=== PATIENT | female | born 1960 ===

== ENCOUNTER 2021-12-01 12:00 | Inpatient (IN) | payer OTHER ==
[~2021-12-01] VITALS: Ht 190.5 cm; Wt 104.3 kg
[2021-12-01] MEDS ORDERED: MAGNESIUM400 MG (13:56)
[2021-12-01] MEDS ORDERED: MELATONIN5 M1 (13:56)
[2021-12-07] MEDS ORDERED: PERCOCET 5-3251 EACH PO (08:04)
== END 2021-12-07 12:11 | disposition home or self-care (01) | DRG 337 ==
LOC: O/R 12-06 05:00 → SURG 12-06 05:00
PROVIDERS: ADMIT Surgery; ATTEND Surgery
PROC: 0DNW4ZZ Release Peritoneum, Percutaneous Endoscopic Approach (ICD-10-PCS; 2021-12-06)
PROC: 0WUF4JZ Supplement Abdominal Wall with Synthetic Substitute, Percutaneous Endoscopic Approach (ICD-10-PCS; 2021-12-06)
PROC: 0DNU4ZZ Release Omentum, Percutaneous Endoscopic Approach (ICD-10-PCS; principal; 2021-12-06 13:45)
DX: K43.9 Ventral hernia without obstruction or gangrene (principal); K66.0 Peritoneal adhesions (postprocedural) (postinfection); Z20.822 Contact with and (suspected) exposure to COVID-19

== ENCOUNTER 2023-03-06 08:24 | Outpatient (CLI) | payer OTHER ==
[~2023-03-06 08:24] MED LIST: MAGNESIUM400 MG; MELATONIN5 M1; PERCOCET 5-3251 EACH PO
== END 2023-03-06 08:26 | disposition home or self-care (01) ==
LOC: TOM 08:24
PROVIDERS: ATTEND Surgery
DX: K56.609 Unspecified intestinal obstruction, unspecified as to partial versus complete obstruction (principal); K57.30 Diverticulosis of large intestine without perforation or abscess without bleeding

== ENCOUNTER 2024-01-31 12:00 | Inpatient (IN) | payer OTHER ==
[~2024-01-31] VITALS: Ht 91.4 cm; Wt 101.2 kg
[2024-01-31 13:46] VITALS: BP 145/77
[2024-01-31] MEDS ORDERED: AVAPRO75 MG PO (13:47)
[2024-01-31] MEDS ORDERED: DETROL1 MG PO (13:48)
[2024-01-31] MEDS ORDERED: SIMVASTATIN (13:49)
[2024-01-31] MEDS ORDERED: NEURONTIN300 MG PO (13:49)
[2024-01-31] MEDS ORDERED: NEURONTIN300 MG (13:49)
[2024-01-31] MEDS ORDERED: ZANAFLEX4 MG PO (13:50)
[2024-02-05] MEDS ORDERED: ONDANSETRON HCL 2 MG/ML VIAL IV PRN (20:00)
[2024-02-05] MEDS ORDERED: ACETAMINOPHEN 500 MG GEL..CAP PO SCH (20:00)
[2024-02-05] MEDS ORDERED: RINGERS SOLUTION,LACTATED 1,000 ML IV SCH (20:00)
[2024-02-05] MEDS ORDERED: MORPHINE SULFATE 4 MG/ML CARTRIDGE IV PRN (20:00)
[2024-02-05] MEDS ORDERED: OxyCODONE HCL 5 MG TABLET (ROXICODONE) PO PRN (20:00)
[2024-02-05] MEDS ORDERED: LIDOCAINE HCL 1%/EPINEPHRINE 20ML VIAL IJ SCH (20:30)
[2024-02-05] MEDS ORDERED: BUPIVACAINE HCL 30 ML VIAL IJ SCH (20:30)
[2024-02-05] MEDS ORDERED: METRONIDAZOLE/SODIUM CHLORIDE 500 MG/100 ML PIGGYBACK IV SCH (20:30)
[2024-02-05] MEDS ORDERED: levoFLOXacin IN DEXTROSE 5 % 5 MG/ML PIGGYBAG IV SCH (20:30)
[2024-02-05] MEDS ORDERED: SIMETHICONE 125 MG CAPSULE PO SCH (21:00)
[2024-02-05] MEDS ORDERED: FAMOTIDINE/PF 20 MG/2 ML VIAL IV PUSH SCH (21:00)
[2024-02-05] MEDS ORDERED: SUGAMMADEX SODIUM 200 MG/2 ML VIAL IV SCH (22:00)
[2024-02-05] MEDS ORDERED: MORPHINE SULFATE 4 MG/ML VIAL IV ONE ×2 (22:25→23:30)
[2024-02-05] MEDS ORDERED: ONDANSETRON HCL 2 MG/ML VIAL IV ONE (22:25)
[2024-02-05 23:59] LABS: HEMATOCRIT 37.6 % (36.0-45.00); HEMOGLOBIN 12.6 g/dL (12.0-15.00); MEAN CELL VOLUME 89.2 fL (80.00-100.00); MEAN CORPUSCULAR HEMOGLOBIN 29.9 pg (27.00-32.0); MEAN CORPUSCULAR HGB CONC 33.5 g/dl (32.0-36.0); PLATELET COUNT 216 K/uL (150-450); RED BLOOD COUNT 4.22 M/uL (4.00-6.00); RED CELL DISTRIBUTION WIDTH 14.5 % (11.5-14.5)
[2024-02-06] MEDS ORDERED: GABAPENTIN 300 MG CAPSULE PO SCH (01:00)
[2024-02-06] MEDS ORDERED: METOCLOPRAMIDE HCL 5 MG/ML VIAL IV SCH (01:00)
[2024-02-06 03:40] VITALS: BP 154/84; O2SAT 95
[2024-02-06 08:00] VITALS: BP 150/78; O2SAT 95
[2024-02-06] MEDS ORDERED: LACTULOSE 20 G/30 ML BLIST.PACK PO SCH (09:00)
[2024-02-06] MEDS ORDERED: HYOSCYAMINE SULFATE 0.125 MG TAB.SUBL SL SCH (09:00)
[2024-02-06] MEDS ORDERED: LACTOBACILLUS ACIDOPHILUS 1 CAP CAP PO SCH (09:00)
[2024-02-06] MEDS ORDERED: IRBESARTAN 75 MG TABLET PO SCH (09:00)
[2024-02-06 11:55] LABS: HEMATOCRIT 43.2 % (36.0-45.00); HEMOGLOBIN 14.5 g/dL (12.0-15.00); MEAN CELL VOLUME 89.6 fL (80.00-100.00); MEAN CORPUSCULAR HGB CONC 33.5 g/dl (32.0-36.0); PLATELET COUNT 209 K/uL (150-450); RED BLOOD COUNT 4.81 M/uL (4.00-6.00); RED CELL DISTRIBUTION WIDTH 14.4 % (11.5-14.5)
[2024-02-06 16:00] VITALS: BP 130/66; O2SAT 98
[2024-02-06] MEDS ORDERED: ENOXAPARIN SODIUM 40 MG/0.4 ML SYRINGE SUBCUTANEO SCH (17:00)
[2024-02-06] MEDS ORDERED: POLYETHYLENE GLYCOL 3350 17 GM BLIST.PACK PO SCH (17:00)
[2024-02-07 00:43] VITALS: BP 119/63; O2SAT 98
[2024-02-07 07:14] LABS: CALCIUM 8.7 mg/dL (8.5-10.1); CREATININE SERUM 0.6 mg/dL (0.55-1.02); GFR 100.33; POTASSIUM 4.03 mEq/L (3.5-5.1)
[2024-02-07 08:00] VITALS: BP 109/62; O2SAT 95
[2024-02-07] MEDS ORDERED: ENOXAPARIN SODIUM 40 MG/0.4 ML SYRINGE SUBCUTANEO SCH (09:00)
[2024-02-07 16:02] VITALS: BP 118/76; O2SAT 99
[2024-02-08] VITALS: BP 106/69; O2SAT 97
[2024-02-08] MEDS ORDERED: PANTOPRAZOLE SODIUM 40 MG TABLET.DR PO ONE (01:15)
[2024-02-08] MEDS ORDERED: SUCRALFATE 1 G TABLET PO ONE (01:15)
[2024-02-08] MEDS ORDERED: NEURONTIN300 MG PO (08:18)
[2024-02-08] MEDS ORDERED: INTESTINEX680 M1 PO (08:18)
[2024-02-08] MEDS ORDERED: CELECOXIB200 MG PO (08:19)
[2024-02-08] MEDS ORDERED: CYCLOBENZAPRINE10 MG PO (08:20)
[2024-02-08 09:07] VITALS: BP 124/73; O2SAT 96
== END 2024-02-08 11:54 | disposition home or self-care (01) | DRG 331 ==
LOC: SURH 02-05 07:00 → O/R 02-05 16:24 → SURG 02-05 22:22
PROVIDERS: Internal Medicine; ADMIT Surgery; ATTEND Surgery
PROC: 0DBU4ZZ Excision of Omentum, Percutaneous Endoscopic Approach (ICD-10-PCS; 2024-02-05)
PROC: 0DTP4ZZ Resection of Rectum, Percutaneous Endoscopic Approach (ICD-10-PCS; 2024-02-05)
PROC: 0DNW4ZZ Release Peritoneum, Percutaneous Endoscopic Approach (ICD-10-PCS; 2024-02-05)
PROC: 0DJD8ZZ Inspection of Lower Intestinal Tract, Via Natural or Artificial Opening Endoscopic (ICD-10-PCS; 2024-02-05)
PROC: 0DBN4ZZ Excision of Sigmoid Colon, Percutaneous Endoscopic Approach (ICD-10-PCS; principal; 2024-02-05 07:00)
DX: K57.30 Diverticulosis of large intestine without perforation or abscess without bleeding (principal); K59.02 Outlet dysfunction constipation